=== PATIENT | male | born 1950 | race Caucasian/White ===

== ENCOUNTER → 2017-01-08 | Outpatient (CLI) | payer OTHER | LOC: FIMAGING 12:04 | PROVIDERS: ATTEND Internal Medicine | DX: I50.9 Heart failure, unspecified (principal); R06.02 Shortness of breath; I10 Essential (primary) hypertension ==

== ENCOUNTER 2017-02-10 15:05 | Inpatient (IN) | payer OTHER ==
--- NOTE | 2017-02-10 15:29 | GHP ---
[f rep st] HISTORY AND PHYSICAL DATE OF ADMISSION: 02/10/2017 CHIEF COMPLAINT: Worsening shortness of breath at rest with weight gain and lower extremity edema. HISTORY OF PRESENT ILLNESS: The patient is a 66-year-old gentleman with the following cardiac history: In November of 2012 after a bronchitis, he was diagnosed with a nonischemic cardiomyopathy and LVEF of 14%. Heart catheterization in November of 2012 demonstrated [id number] nonobstructive coronary artery disease. An echo in November of 2012 demonstrated an LVEF of 12% with [id number] mitral regurgitation. Of note, the patient was drinking 4 alcoholic drinks per day at the time. His last echo in December of 2016 demonstrates an LVEF of 17% with moderate RV dysfunction, and mild aortic insufficiency with mild to moderate mitral and tricuspid insufficiency with an estimated PA systolic pressure of 63 mmHg. The LVEDD is 6.4 cm. He has cut his drinking down to 1-2 alcoholic drinks per day. He is short of breath at rest. He has orthopnea and PND. He denies chest pain or syncope. He has gained about 10 pounds in the last month. The patient has been on ARB and HCTZ , but no beta blockers reportedly. PAST MEDICAL HISTORY: Acute on chronic nonischemic cardiomyopathy with an LVEF of 12%, hypertension, borderline diabetes, and previous heavy tobacco use. PAST SURGICAL HISTORY: None. CURRENT MEDICATIONS: Lasix 80 mg b.i.d., Diovan HCTZ 160 mg/12.5 mg per day, KCl 20 mEq per day, and Coumadin 5 mg per day. ALLERGIES: Amoxicillin. SOCIAL HISTORY: The patient is retired. He is a previous consumer loan specialist. He is . He quit tobacco 34 years ago. He currently drinks 2 alcoholic drinks per day. FAMILY HISTORY: Unremarkable for premature heart failure or coronary artery disease. REVIEW OF SYSTEMS: The patient reports no recent fevers, chills. His weight is up slightly, he reports, compared to a month ago. The rest of 10-point review of systems is negative. PHYSICAL EXAM: VITAL SIGNS: Afebrile, pulse 109 and regular, blood pressure 142/84, respirations 26, weight 94 kg, 97% oxygen saturation on room air. GENERAL: A mildly obese gentleman in mild respiratory distress without chest pain. EYES: Pupils equal and reactive to light. ENT: Oral mucosa with no cyanosis. NECK: Jugular venous pressure to 10 cm. Carotid pulse 2+ bilaterally with no obvious bruits. No thyromegaly noted. No nuchal rigidity. LUNGS: Crackles and wheezes bilaterally. HEART: Enlarged PMI. Regular rate and rhythm with positive S3 gallop. 2/6 systolic murmur heard. ABODMEN: Soft and nontender. No guarding or rebound. Liver edge felt 1-2 cm below the right costal margin. No obvious ascites. EXTREMITIES: 2+ peripheral pulses, including femoral and pedal pulses. 2+ edema to the knees bilaterally. MUSCULOSKELETAL: No scoliosis. NEURO: Normal affect and mood. SKIN: No bleeding or cyanosis. LABORATORY DATA: EKG sinus tachycardia at 109 beats per minute. T-wave inversions noted laterally. Normal QRS duration. Last known labs in December of 2016: NT proBNP level 8,060. Sodium 142, potassium 3.8, chloride 104, bicarb 25, BUN 33, creatinine 1.6, glucose 133, hematocrit 51 , total bilirubin 2.3, AST 71, ALT 74. IMPRESSION AND PLAN: A 66-year-old gentleman with acute on chronic nonischemic cardiomyopathy with a left ventricular ejection fraction of 12% and Class 4 [place] [employer] symptoms. He is in volume overload with pulmonary edema and hepatosplenomegaly. 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 Though he does have some renal dysfunction, I think he is still a candidate for Entresto. PLAN: 1. We will admit to telemetry. 2. We will get labs upon admission, including a CBC, CMP panel, BNP level, troponin, TSH, hemoglobin A1c and PT/INR. 3. We will start on Lasix 80 mg IV q.8 hours. 4. We will stop Diovan HCTZ and placed on Entresto 24/26 mg b.i.d. 5. We will start on carvedilol 3.125 mg b.i.d. 6. We will start on Aldactone 12.5 mg daily during this hospitalization once his electrolytes are stable. 7. After 3-4 days of diuresis, we will do an echocardiogram to reevaluate LV function. 8. I recommended he stop all alcohol use at this time. /[id number]/MODL MTDD
[2017-02-10] MEDS ORDERED: ACETAMINOPHEN 325 MG TAB PO PRN (17:04)
[2017-02-10] MEDS ORDERED: ONDANSETRON DISINTEGRATING 4 MG TAB PO PRN (17:04)
[2017-02-10] MEDS ORDERED: TEMAZEPAM 15 MG CAP PO PRN (17:04)
[2017-02-10] MEDS ORDERED: ONDANSETRON 4 MG/2 ML VIAL IVP PRN (17:04)
--- NOTE | 2017-02-10 17:50 | PDCARPN ---
Cardiology Progress Note Assessment/Plan: Assessment: CHF-- Bilateral Leg edema 2 +, Abd full, SOB improved with oxygen. Cardiomyopathy- EF 12% Start on Lasix IVP 80 mh Q8 hrs, Coreg 3.125 mg BID, Entresto BID. Hold Coumadin today. Plan: Computer Applications Developer continuous, Start CHF medications as above tonight. Lab this evening and AM. HOLD Coumadin tonight. ECHO in 3 days.. Scheduled for 02/13/17. No distress at time of visit. 02/10/17 17:45 Objective: Vital Signs (8 Hrs) Temp Pulse Resp BP Pulse Ox 02/10/17 16:44 37.1 C 111 H 20 126/91 H 97 - Physical Exam Constitutional: WDWN, no apparent distress, obese Cardiovascular: regular rate and rhythm, no murmurs, no gallops Peripheral Pulses: 1+: dorsalis-pedis (R), dorsalis-pedis (L) Respiratory: no crackles, no wheezes, reduced air movement Gastrointestinal: no tenderness, ascites, No guarding Skin: warm, other (2+ edema Zachary LE) Neurologic: AAOx3 Psychiatric: cooperative, interactive ICD10 Worksheet Patient Problems: Problems Problem Status Onset Chronic Disease Management/Transitional Care Program Active
[2017-02-10 18:26] LABS: INR 2.98 (0.83-1.16); PROTIME(PATIENT) 31.4 SEC (12.0-15.0)
[2017-02-10 18:41] LABS: ALANINE AMINOTRANSFERASE 63 IU/L (21-72); ALBUMIN 4.5 g/dL (3.5-5.0); ALKALINE PHOSPHATASE 95 IU/L (38-126); ANION GAP 17 mEq/L (8-16); ASPARTATE AMINOTRANSFERASE 80 IU/L (17-59); BILIRUBIN,TOTAL 3.7 mg/dL (0.1-1.4); CALCIUM 9.4 mg/dL (8.5-10.4); CARBON DIOXIDE 25 mEq/l (22-31); CHLORIDE 98 mEq/L (97-110); CREATININE 1.8 mg/dL (0.7-1.3); GLOMERULAR FILTRATION RATE 38; GLUCOSE 162 mg/dL (70-100); MAGNESIUM 2.1 mg/dL (1.6-2.3); POTASSIUM 3.6 mEq/L (3.5-5.2); SODIUM 140 mEq/L (134-144); TOTAL PROTEIN 8.3 g/dL (6.3-8.2)
[2017-02-10 18:53] LABS: TROPONIN I 0.067 ng/mL (0.000-0.034)
[2017-02-10] MEDS ORDERED: FUROSEMIDE 100 MG/10 ML VIAL IVP ONE (19:00)
[2017-02-10] MEDS: CARVEDILOL 3.125 MG TAB PO SCH (19:00)
[2017-02-10 19:20] LABS: BILIRUBIN-CONJUGATED 1.4 mg/dL (0.0-0.5); BILIRUBIN-UNCONJUGATED 2.3 mg/dL (0.0-1.1)
[2017-02-10] MEDS: SACUBITRIL/VALSARTAN 24/26MG 1 EA TAB PO SCH (21:11)
[2017-02-10] MEDS: LORazepam 1 MG TAB PO PRN (21:12)
[2017-02-10 21:43] LABS: % IMMATURE GRANULYOCYTES 0.3 % (0.0-1.1); ABSOLUTE IMMATURE GRANULOCYTES 0.02 10^3/uL (0.00-0.10); ADD DIFF? NO; ADD MORPH? NO; ADD SCAN? NO; ATYPICAL LYMPHOCYTE FLAG 20 (0-99); FRAGMENT RBC FLAG 0 (0-99); HEMATOCRIT 50.9 % (40.0-51.0); HEMOGLOBIN 17.4 g/dL (13.7-17.5); LEFT SHIFT FLG 0 (0-99); LIPEMIA HEMOLYSIS FLAG 90 (0-99); MEAN CELL HEMOGLOBIN CONCENTR. 34.2 g/dL (32.4-36.7); MEAN CELL VOLUME 90.7 fL (81.5-99.8); MEAN PLATELET VOLUME 10.9 fL (8.7-11.7); PLATELET CLUMPS FLAG 10 (0-99); PLATELET COUNT 242 10^3/uL (150-400); RED BLOOD CELL COUNT 5.61 10^6/uL (4.40-6.38)
[2017-02-10] MEDS ORDERED: FUROSEMIDE 40 MG/4 ML VIAL IVP SCH (22:00)
[2017-02-11] MEDS: FUROSEMIDE 80 MG in D5W 50 ML IV SCH ×3 (03:35→18:20)
[2017-02-11 05:26] LABS: INR 3.02 (0.83-1.16); PROTIME(PATIENT) 31.7 SEC (12.0-15.0)
[2017-02-11 05:37] LABS: ANION GAP 16 mEq/L (8-16); CALCIUM 8.5 mg/dL (8.5-10.4); CARBON DIOXIDE 23 mEq/l (22-31); CHLORIDE 101 mEq/L (97-110); CREATININE 1.6 mg/dL (0.7-1.3); GLOMERULAR FILTRATION RATE 44; GLUCOSE 89 mg/dL (70-100); POTASSIUM 3.7 mEq/L (3.5-5.2); SODIUM 140 mEq/L (134-144)
[2017-02-11] MEDS ORDERED: VALSARTAN 160 MG TAB PO SCH (09:00)
[2017-02-11] MEDS ORDERED: HYDROCHLOROTHIAZIDE 12.5 MG CAP PO SCH (09:00)
[2017-02-11] MEDS ORDERED: NON-FORMULARY NEW DRUG (Valsartan/Hydrochlorothiazide [Valsartan-Hctz 160-12.5 Mg Tab] 1 E PO SCH (09:00)
[2017-02-11] MEDS: POTASSIUM CL 20 MEQ TAB PO SCH (10:12)
[2017-02-11] MEDS: CARVEDILOL 3.125 MG TAB PO SCH ×2 (10:13→18:19)
[2017-02-11] MEDS: SACUBITRIL/VALSARTAN 24/26MG 1 EA TAB PO SCH ×2 (10:16→20:21)
--- NOTE | 2017-02-11 14:23 | ASMTCASEMG ---
Living Arrangements What is your living arrangement? Who do you live Answers: With Spouse with? Type Of Residence What kind of residence do you live in? Answers: House Case Management Evaluation Psychosocial Needs: Answers: Active Substance Abuse Notes: ETOH Behavioral Health Issue Notes: ETOH Discharge Plan Comments Coordination Status Comments Notes: CM met w/ pt. Discussed CHF; pt is in agreement w/ homecare RN to check daily weight and vital sign s. First choice, [facility]. CM faxed referral. Spoke w/ TAWANA Andrews to call tomorrow morning for availability. CM will follow. Date Signed: 02/11/2017 02:06 PM Electronically Signed By:Colleen Mckeon
[2017-02-11] MEDS: LORazepam 1 MG TAB PO PRN (15:26)
[2017-02-11] MEDS ORDERED: WARFARIN SODIUM 5 MG TAB PO SCH (16:00)
--- NOTE | 2017-02-11 16:26 | PDCARPN ---
Cardiology Progress Note Chief Complaint: No cardiovascular complaints at present. Assessment/Plan: Assessment: Patient is a 66 y/o male with history of CHF (known severe suppression of EF to 10-15%) with progressive weight gain and dyspnea, who presented to outpatient cardiology with CHF exacerbation. Patient was seen by Dr. Marilou Levi, who recommended inpatient therapy (oral lasix likely not working given the edema noted and the LVEF history). Patient with long standing history of CHF per chart review. No cardiovascular complaints were voiced to myself this morning or this afternoon. During with initial assessment last night, there was trouble with IV access (three attempts were made), and the patient voiced desire to leave against medical advice. Ultimately, we were able to get the patient to stay for further treatment to be rendered. Unfortunately, the patient took his home medications this morning (oral lasix and coumadin) prior to the IV lasix being rendered. The patient once again voiced desires to go home. was present just prior to my entering the room this evening, and we spoke at length about the patient's condition. She added that depression and alcohol abuse were players in the patient's history as well. After a long talk with the patient, we have decided to keep the patient overnight tonight and continue with IV lasix therapy. Will refrain from strap buckler machine vitals, but will have morning labs drawn to determine how the therapy that has been rendered is being tolerated. Plan: (1) Would continue IV lasix tonight and follow urine output as made possible (2) Uncertain on why there was desire to hold the coumadin, but would continue with this plan (3) Patient likely to leave tomorrow morning, regardless of our recommendations (4) Outpatient follow up with Dr. Marilou Levi this week if possible - no discussion about ICD per patient reports, would determine if this is an option we can pursue given EF of 10-15% (5) Continue therapy on Coreg as at present (6) Patient's prognosis is poor, especially if follow up with cardiology (in particular) is not maintained Subjective: No cardiovascular complaints Reviewed/Discussed With: family, hospitalist, multidisciplinary team Objective: Vital Signs (8 Hrs) Temp Pulse Resp BP Pulse Ox 02/11/17 12:00 37.1 C 104 H 15 122/82 H 96 Intake/Output (24 Hrs) 02/10/17 02/11/17 02/12/17 05:59 05:59 05:59 Intake Total 80 Output Total 1175 Balance 80 -1175 Intake: IV Intake (ml) 80 Output: Urine (ml) 1175 Toilet 1175 Other: Weight 92.2 kg Number of Voids Toilet 2 Result Diagrams: 02/10/17 21:30 02/11/17 04:16 Cardiac Labs: Cardiac Lab Results (72 Hrs) 02/10/17 17:04 Troponin I 0.067 H Echocardiogram: Outpatient echocardiogram with EF of 10-15% - Physical Exam Constitutional: WDWN, no apparent distress, obese Eyes: PERRL Ears, Nose, Mouth, Throat: moist mucous membranes Cardiovascular: regular rate and rhythm, systolic murmur, jugular vein distention Peripheral Pulses: 2+: dorsalis-pedis (R), dorsalis-pedis (L) Respiratory: clear to auscultate bilat, reduced air movement Gastrointestinal: normoactive bowel sounds Skin: no rashes, other (edema to bilateral lower extremities) Musculoskeletal: no muscular tenderness Neurologic: AAOx3, CN II-XII grossly intact Psychiatric: cooperative, interactive, following commands, anxious ICD10 Worksheet Patient Problems: Problems Problem Status Onset Chronic Disease Management/Transitional Care Program Active
[2017-02-12 03:15] VITALS: RESP 19
[2017-02-12] MEDS: FUROSEMIDE 80 MG in D5W 50 ML IV SCH (03:45)
[2017-02-12 07:14] VITALS: BP 126/79; PULSE 94; TEMP 98.6
[2017-02-12] MEDS: SACUBITRIL/VALSARTAN 24/26MG 1 EA TAB PO SCH (08:30)
[2017-02-12] MEDS: POTASSIUM CL 20 MEQ TAB PO SCH (08:31)
[2017-02-12] MEDS: CARVEDILOL 3.125 MG TAB PO SCH (08:31)
[2017-02-12] MEDS ORDERED: SPIRONOLACTONE 25 MG TAB PO SCH (09:00)
[2017-02-12 09:23] VITALS: O2SAT 92
--- NOTE | 2017-02-12 09:33 | SOAPPROG ---
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 He is no longer in pulmonary edema and has lost 6lbs. Ideally he should be in hospital for another 2-3 days of IV diuretics and titration of meds as he is still moderately hypervolemic but he is insistent on leaving today. PLAN: 1)home on Coreg 3.125mg PO BID 2)entresto 24/26mg PO BID 3)aldactone 12.5mg PO qam 4)demadex 80mg PO BID 5)KCL 20meq PO qam 6)coumadin 5mg PO qday. 7)NO ETOH at all 8)labs in five days (CBC, BMP, BNP level and INR). 9)f/u [facility]F-[facility] one week. 02/12/17 09:29 Subjective: feels better. No more wheezeing. Denies CP, PND or syncope. Walks 20ft without sx. Objective: Vital Signs Temp Pulse Resp BP Pulse Ox 37.0 C 94 19 126/79 H 92 02/12/17 07:12 02/12/17 07:12 02/12/17 07:12 02/12/17 07:12 02/12/17 09:22 Laboratory Results 02/10/17 21:30 02/11/17 04:16 02/11/17 02/12/17 02/13/17 05:59 05:59 05:59 Intake Total 80 1760 Output Total 2125 Balance 80 -365 PT REJ 02/12/17 07:00 INR REJ 02/12/17 07:00 Physical Exam - Physical Exam General Appearance: alert EENT: normal ENT inspection Neck: non-tender Respiratory: lungs clear Cardiac/Chest: regular rate, rhythm, gallop, JVD Peripheral Pulses: 2+: carotid (R), carotid (L), femoral (R), femoral (L), dorsalis-pedis (R), dorsalis-pedis (L) Abdomen: normal bowel sounds, non-tender, No ascites Skin: warm/dry Extremities: pedal edema Neuro/Psych: alert ICD10 Worksheet Patient Problems: Problems Problem Status Onset Chronic Disease Management/Transitional Care Program Active
--- NOTE | 2017-02-12 10:43 | ASDISCHSUM ---
Discharge Information Plan Status:Home with No Needs Medically Cleared to Leave:02/12/2017 Discharge Date:02/12/2017 CM D/C Disposition:Home, Routine, Self-Care ADT D/C Disposition:Home, Routine, Self-Care Projected Discharge Date:02/12/2017 12:00 AM Transportation at D/C:Family Discharge Delay Reason: Follow-Up Date:02/12/2017 12:00 AM Discharge Slot:2 - 12:01 pm - 18:00 pm Final Diagnosis: Placement Information Patient Contact Information Contact Name:PILI Relationship: Address:[address] City:[place] Alternate Phone: [facility]/Zip Code:[place] [address] Email: Financial Information Financial Class:Medicare Advantage Plans Primary Plan Desc:[facility] [employer] PLANS Primary Plan Number:[id number] Secondary Plan Desc: Secondary Plan Number: Assessment Information BC Initial CM Assessment Living Arrangements What is your living Answers: With Spouse arrangement? Who do you live with? Type Of Residence What kind of residence do Answers: House you live in? Case Management Evaluation Psychosocial Needs: Answers: Active Substance Abuse Notes: ETOH Behavioral Health Issue Notes: ETOH Discharge Plan Comments Coordination Status Comments Notes: CM met w/ pt. Discussed CHF; pt is in agreement w/ homecare RN to check daily weight and vital signs. First choice, [facility]. CM faxed referral. Spoke w/ TAWANA Andrews to call tomorrow morning for availability. CM will follow. Date Signed: 02/11/2017 02:06 PM Electronically Signed By:Colleen Mckeon Intervention Information
[2017-02-12] MEDS ORDERED: TORSEMIDE 20 MG TAB PO SCH (10:45)
--- NOTE | 2017-02-12 10:46 | ASMTCMCOM ---
CM Note CM Note Notes: [facility] unable to staff patient at d/c. Discussed other Home Care Agency options, pt refused home hea lth RN visits. Pt reports follow up appointments scheduled w/ adjunct psychology professor. Pt plans for to transport home today. Date Signed: 02/12/2017 10:45 AM Electronically Signed By:Nessa Gomes
== END 2017-02-12 12:04 | disposition home or self-care (01) | DRG 292 ==
LOC: F2W 16:43 → OBSVTOIN 17:26
PROVIDERS: ADMIT Internal Medicine Cardiovascular Disease; ATTEND Internal Medicine Cardiovascular Disease
DX: I50.23 Acute on chronic systolic (congestive) heart failure (principal); I42.8 Other cardiomyopathies; I42.6 Alcoholic cardiomyopathy; F10.99 Alcohol use, unspecified with unspecified alcohol-induced disorder; I10 Essential (primary) hypertension; R73.03 Prediabetes; E66.09 Other obesity due to excess calories; Z68.30 Body mass index [BMI] 30.0-30.9, adult; Z87.891 Personal history of nicotine dependence
CPT/HCPCS: J1940